=== PATIENT | male | born 1990 | race Caucasian/White ===

== ENCOUNTER → 2018-02-23 | Outpatient (CLI) | payer OTHER ==
[~2018-02-23] MED LIST: AMOX1TAB12 PO; DESPEC DM SYRU473 ML PO
== END | disposition home or self-care (01) ==
LOC: RAD 14:43
DX: J32.8 Other chronic sinusitis (principal)

== ENCOUNTER 2019-04-17 16:16 | Outpatient (CLI) | payer OTHER | END 2019-04-17 16:57 | disposition home or self-care (01) | LOC: RAD 16:16 | DX: J01.80 Other acute sinusitis (principal); J44.1 Chronic obstructive pulmonary disease with (acute) exacerbation ==